=== PATIENT | male | born 1995 | race Caucasian/White ===

== ENCOUNTER 2017-03-05 11:33 | Emergency (ER) | payer OTHER ==
[~2017-03-05] VITALS: Ht 182.9 cm; Wt 84.5 kg
[~2017-03-05 11:33] MED LIST: FOCALIN XR10 MG PO; FOCALIN10 MG PO; NOHOMEMEDS
[2017-03-05] MEDS ORDERED: FLONASE16 G1 BOTH NARES (14:29)
[2017-03-05] MEDS ORDERED: TESSALON PERLE100 MG PO (14:29)
[2017-03-05] MEDS ORDERED: GUAIFENESIN600 M1 PO (14:29)
[2017-03-05 14:42] VITALS: BP 124/66
== END 2017-03-05 14:45 | disposition home or self-care (01) ==
LOC: EME 11:33
PROVIDERS: Nurse Practitioner Family
DX: J06.9 Acute upper respiratory infection, unspecified (principal); B34.9 Viral infection, unspecified; J31.0 Chronic rhinitis; F17.200 Nicotine dependence, unspecified, uncomplicated; Z88.0 Allergy status to penicillin
CPT/HCPCS: 87502; 87651 90; 99281; 99284

== ENCOUNTER 2017-03-13 04:24 | Emergency (ER) | payer OTHER ==
[~2017-03-13] VITALS: Ht 180.3 cm; Wt 86.9 kg
[~2017-03-13 04:24] MED LIST changes: +FLONASE16 G1 BOTH NARES; +GUAIFENESIN600 M1 PO; +TESSALON PERLE100 MG PO
[2017-03-13] MEDS ORDERED: AMOXICILLIN500 MG PO (04:48)
[2017-03-13 05:01] VITALS: BP 132/78
== END 2017-03-13 05:02 | disposition home or self-care (01) ==
LOC: EME 04:24
DX: J02.9 Acute pharyngitis, unspecified (principal); R05 Cough; Z88.0 Allergy status to penicillin; F17.200 Nicotine dependence, unspecified, uncomplicated
CPT/HCPCS: 99281; 99283; J1100